=== PATIENT | female | born 1990 | race Two or more races ===

== ENCOUNTER 2025-05-18 17:56 | Emergency (ER) | payer MEDICAID, SELFPAY ==
[2025-05-18 18:05] VITALS: BP 107/62; PULSE 71; RESP 19; TEMP 37.2; O2SAT 98; BMI 19.7
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
[2025-05-18] MEDS: SILVER SULFADIAZINE CR 1% 25 GM TUBE TOP (18:59)
[2025-05-18] MEDS: DIPHTH,PERTUSS(ACELL),TET VAC 0.5 ML SYR- ADULT IMi (18:59)
== END 2025-05-18 19:09 | disposition home or self-care (01) ==
PROVIDERS: Emergency Provider Family Medicine; PCP Family Medicine
DX: T23.201A Burn of second degree of right hand, unspecified site, initial encounter (principal); T31.0 Burns involving less than 10% of body surface; Z23 Encounter for immunization; X10.2XXA Contact with fats and cooking oils, initial encounter
CPT/HCPCS: 90471; 90715; 99283; A9270